=== PATIENT | male | born 1940 | race African-American/Black ===

== ENCOUNTER 2020-08-11 08:13 | Observation (INO) | payer BC, MEDICARE ==
[2020-08-11] MEDS ORDERED: Aspirin Chewable 81 MG TAB ONE (08:48)
[2020-08-11 10:04] LABS: #Eosinphils 0.1 thou/uL (0.0-0.7); #Lymphocytes 0.6 thou/uL (1.20-3.40); #Monocytes 0.3 thou/uL (0.11-0.59); #Neutrophils 11.2 thou/uL (1.40-6.50); %Eosinophils 0.5 % (0.0-10.0); %Lymphocytes 4.9 % (21.0-51.0); %Monocytes 2.1 % (0.0-10.0); %Neutrophils 92.5 % (42.0-75.0); Hemoglobin 12.6 g/dL (14.0-18.0); Mean Corpuscular HGB CONC 32.3 g/dL (32.0-36.0); Mean Corpuscular Hemoglobin 30.5 pg (27.0-31.0); Mean Corpuscular Volume 94.3 fL (78.0-98.0); Mean Platelet Volume 7.1 fL (7.4-10.4); Platelet Count 210 thou/uL (130-400); RBC Distribution Width 12.6 % (11.5-14.5); Red Blood Cell (RBC) Count 4.13 mill/uL (4.70-6.10); White Blood Cell (WBC) Count 12.1 thou/uL (4.8-10.8)
[2020-08-11 10:16] LABS: ALT (SGPT) 17 U/L (8-55); AST (SGOT) 47 U/L (5-34); Albumin 3.7 g/dL (3.4-4.8); Alkaline Phosphatase 99 U/L (40-110); Anion Gap 15 mmol/L (10-20); BUN (Urea Nitrogen) 23 mg/dL (8.4-25.7); Calc. Creatinine Clearance 0 mL/min (70-130); Calcium 8.7 mg/dL (7.8-10.44); Carbon Dioxide 21 mmol/L (23-31); Chloride 108 mmol/L (98-107); Globulin 3.6 g/dL (2.4-3.5); Glucose 115 mg/dL (83-110); Lipase 12 U/L (8-78); Potassium 5.4 mmol/L (3.5-5.1); Protein, Total 7.3 g/dL (5.8-8.1); Sodium 139 mmol/L (136-145)
[2020-08-11] MEDS ORDERED: Acetaminophen 325 MG TAB PO PRN (11:07)
[2020-08-11] MEDS ORDERED: Furosemide 20 MG TAB PO SCH ×2 (11:30→12:00)
[2020-08-11 11:40] LABS: Hemoglobin A1c 5.6 % (4.0-6.0)
[2020-08-11 11:54] LABS: Magnesium 1.9 mg/dL (1.6-2.6); Phosphorus 3.3 mg/dL (2.3-4.7)
[2020-08-11] MEDS ORDERED: Furosemide 40 MG TAB ONE (15:44)
[2020-08-11] MEDS ORDERED: Furosemide 20 MG/2 ML VIAL ONE (15:44)
[2020-08-11 18:34] LABS: Troponin I 0.034 ng/mL (< 0.028)
[2020-08-11] MEDS ORDERED: Ondansetron ODT 4 MG TAB PO PRN (19:59)
[2020-08-11 20:02] LABS: SARS-CoV-2 PCR by NAA Not Detected (NotDetected)
[2020-08-11 20:11] VITALS: BMI 31.7
[2020-08-11] MEDS ORDERED: Polyethylene Glycol 3350 17 GM Packet PO SCH (20:30)
[2020-08-11] MEDS: Carvedilol 25 MG TAB PO SCH (20:38)
[2020-08-11] MEDS: Sacubitril 49 MG/Valsartan 51 MG TABLET PO SCH (20:38)
[2020-08-12 05:59] LABS: #Eosinphils 0.1 thou/uL (0.0-0.7); #Lymphocytes 0.9 thou/uL (1.20-3.40); #Monocytes 0.5 thou/uL (0.11-0.59); #Neutrophils 4.9 thou/uL (1.40-6.50); %Basophils 0.2 % (0.0-1.0); %Eosinophils 1.9 % (0.0-10.0); %Lymphocytes 13.7 % (21.0-51.0); %Neutrophils 76.2 % (42.0-75.0); Hemoglobin 12.2 g/dL (14.0-18.0); Mean Corpuscular HGB CONC 31.7 g/dL (32.0-36.0); Mean Corpuscular Hemoglobin 30.5 pg (27.0-31.0); Mean Corpuscular Volume 96.2 fL (78.0-98.0); Mean Platelet Volume 7.3 fL (7.4-10.4); Platelet Count 203 thou/uL (130-400); RBC Distribution Width 12.6 % (11.5-14.5); Red Blood Cell (RBC) Count 4.01 mill/uL (4.70-6.10); White Blood Cell (WBC) Count 6.4 thou/uL (4.8-10.8)
[2020-08-12 06:20] LABS: Anion Gap 14 mmol/L (10-20); BUN (Urea Nitrogen) 19 mg/dL (8.4-25.7); Calc. Creatinine Clearance 105 mL/min (70-130); Calcium 8.1 mg/dL (7.8-10.44); Carbon Dioxide 19 mmol/L (23-31); Cardiac Risk 2.6 (Less than 4.5); Chloride 109 mmol/L (98-107); Cholesterol 126 mg/dl (< 200 Desired); Glucose 80 mg/dL (83-110); HDL Cholesterol 49 mg/dL (>60 Neg Risk); LDL Cholesterol, Calculated 69 mg/dL; Potassium 4.1 mmol/L (3.5-5.1); Sodium 138 mmol/L (136-145); Triglycerides 38 mg/dL (Less than 150)
[2020-08-12] MEDS: Sacubitril 49 MG/Valsartan 51 MG TABLET PO SCH (08:39)
[2020-08-12] MEDS: Carvedilol 25 MG TAB PO SCH (08:40)
[2020-08-12] MEDS ORDERED: Polyethylene Glycol 3350 17 GM Packet PO SCH (09:00)
[2020-08-12] MEDS ORDERED: Enoxaparin Sodium 40 MG/0.4 ML SYRINGE SC SCH (09:00)
[2020-08-12] MEDS ORDERED: Aspirin Chewable 81 MG TAB PO SCH (09:00)
[2020-08-12] MEDS ORDERED: Amiodarone 200 MG TAB PO SCH (09:00)
[2020-08-12 09:05] VITALS: BP 110/55; TEMP 98.3
[2020-08-12] MEDS ORDERED: Atorvastatin Calcium 20 MG TAB PO SCH (21:00)
== END 2020-08-12 11:41 | disposition home or self-care (01) ==
LOC: ERS 08:13 → ERHOLD 10:46 → 2SW 19:46
PROVIDERS: ADMIT Family Medicine; ATTEND Family Medicine
DX: K59.09 Other constipation (principal); I25.10 Atherosclerotic heart disease of native coronary artery without angina pectoris; I11.0 Hypertensive heart disease with heart failure; I50.9 Heart failure, unspecified; E87.5 Hyperkalemia; E78.5 Hyperlipidemia, unspecified; G47.33 Obstructive sleep apnea (adult) (pediatric); I49.9 Cardiac arrhythmia, unspecified; I08.3 Combined rheumatic disorders of mitral, aortic and tricuspid valves; E66.9 Obesity, unspecified; Z68.31 Body mass index [BMI] 31.0-31.9, adult; Z87.891 Personal history of nicotine dependence; Z79.82 Long term (current) use of aspirin; Z79.899 Other long term (current) drug therapy; Z95.0 Presence of cardiac pacemaker; Z95.1 Presence of aortocoronary bypass graft; Z20.822 Contact with and (suspected) exposure to COVID-19
CPT/HCPCS: 71045; 80048; 80061; 83036; 83690; 83735; 84100; 84436; 84484 ×2; 85025; 93005; 93306; 96372; 99285; G0378 ×3; U0003; U0005; 36415; 80053; 84443; 87635; J1650; J1940

== ENCOUNTER 2020-08-17 17:48 | Observation (INO) | payer MEDICARE ==
[~2020-08-17 17:48] MED LIST: Iopamidol-370 76% 500 ML 1 ML ONE
[2020-08-17 18:35] LABS: #Lymphocytes 1.1 thou/uL (1.20-3.40); #Monocytes 0.4 thou/uL (0.11-0.59); #Neutrophils 8.8 thou/uL (1.40-6.50); %Basophils 0.2 % (0.0-1.0); %Eosinophils 0.3 % (0.0-10.0); %Monocytes 3.9 % (0.0-10.0); %Neutrophils 84.6 % (42.0-75.0); Hemoglobin 13.5 g/dL (14.0-18.0); Mean Corpuscular HGB CONC 32.8 g/dL (32.0-36.0); Mean Corpuscular Hemoglobin 30.7 pg (27.0-31.0); Mean Corpuscular Volume 93.6 fL (78.0-98.0); Mean Platelet Volume 6.9 fL (7.4-10.4); Platelet Count 231 thou/uL (130-400); RBC Distribution Width 12.4 % (11.5-14.5); Red Blood Cell (RBC) Count 4.39 mill/uL (4.70-6.10); White Blood Cell (WBC) Count 10.4 thou/uL (4.8-10.8)
[2020-08-17 19:01] LABS: ALT (SGPT) 12 U/L (8-55); AST (SGOT) 17 U/L (5-34); Albumin 3.6 g/dL (3.4-4.8); Alkaline Phosphatase 82 U/L (40-110); Anion Gap 16 mmol/L (10-20); BUN (Urea Nitrogen) 28 mg/dL (8.4-25.7); Calc. Creatinine Clearance 0 mL/min (70-130); Calcium 8.8 mg/dL (7.8-10.44); Carbon Dioxide 20 mmol/L (23-31); Chloride 107 mmol/L (98-107); Globulin 3.2 g/dL (2.4-3.5); Glucose 126 mg/dL (83-110); Lipase 7 U/L (8-78); Potassium 4.6 mmol/L (3.5-5.1); Protein, Total 6.8 g/dL (5.8-8.1); Sodium 138 mmol/L (136-145)
[2020-08-17 20:14] LABS: Bilirubin Negative (Negative); Blood, Urine Negative (Negative); Clarity Clear (Clear); Glucose, Urine (Dipstick) Normal (Negative); Ketone, Urine Negative (Negative); Leukocyte Negative Leu/uL (Negative); Nitrite Negative (Negative); Protein, Urine (Dipstick) Negative (Neg-Trace); Specific Gravity, Urine 1.029 (1.002-1.036); pH, Urine 6.5 (5.0-9.0)
[2020-08-17] MEDS ORDERED: Morphine 2 MG/ML VIAL SLOW IVP PRN (23:12)
[2020-08-17] MEDS ORDERED: Ondansetron ODT 4 MG TAB SL PRN (23:15)
[2020-08-17] MEDS ORDERED: Ondansetron PF 4 MG/2 ML Vial IVP PRN (23:15)
[2020-08-17] MEDS ORDERED: Sodium Chloride 0.9% 1,000 ML IV SCH (23:15)
[2020-08-17 23:24] VITALS: BMI 30.9
[2020-08-18 02:55] LABS: SARS-CoV-2 NAA Rapid Test Not Detected (NotDetected)
[2020-08-18] MEDS ORDERED: Morphine 2 MG/ML VIAL SLOW IVP PRN (10:26)
[2020-08-18] MEDS ORDERED: Morphine 4 MG/ML VIAL SLOW IVP PRN (10:26)
[2020-08-18] MEDS ORDERED: Ondansetron ODT 4 MG TAB PO PRN (10:26)
[2020-08-18] MEDS ORDERED: Ondansetron PF 4 MG/2 ML Vial IVP PRN (10:26)
[2020-08-18] MEDS ORDERED: hydrALAZINE 20 MG/ML VIAL SLOW IVP PRN (10:26)
[2020-08-18] MEDS ORDERED: Sodium Chloride 0.9% 1,000 ML IV SCH (10:30)
[2020-08-18] MEDS ORDERED: Amiodarone 200 MG TAB PO SCH (10:45)
[2020-08-18] MEDS ORDERED: Carvedilol 25 MG TAB PO SCH ×2 (10:45→21:00)
[2020-08-18] MEDS ORDERED: Lidocaine 1% w/Epinephrine 1:100K 20 ML VIAL ONE (11:57)
[2020-08-18] MEDS ORDERED: Bupivacaine 0.25% HCL 30 ML VIAL ONE (11:57)
[2020-08-18] MEDS ORDERED: Fentanyl 100 MCG/2 ML VIAL ONE (12:20)
[2020-08-18] MEDS ORDERED: Rocuronium Bromide 10 MG/ML (10ML VIAL) ONE (12:23)
[2020-08-18] MEDS ORDERED: PHENYLEPHRINE-NS 100 MCG/ML 10 ML SYRINGE ONE (12:23)
[2020-08-18] MEDS ORDERED: Dexamethasone 20 MG/5 ML VIAL ONE (12:23)
[2020-08-18] MEDS ORDERED: ePHEDrine Sulfate 50 MG/10 ML VIAL ONE (12:23)
[2020-08-18] MEDS ORDERED: Glycopyrrolate 0.2 MG/ML 5 ML SYRINGE ONE (12:23)
[2020-08-18] MEDS ORDERED: Succinylcholine 200 MG/10 ml SYRINGE FS ONE (12:23)
[2020-08-18] MEDS ORDERED: Lidocaine 1% PF 5 ML VIAL ONE (12:23)
[2020-08-18] MEDS ORDERED: PROPOFOL 200 MG/20 ML VIAL ONE (12:23)
[2020-08-18] MEDS ORDERED: Ondansetron PF 4 MG/2 ML Vial ONE (12:23)
[2020-08-18] MEDS ORDERED: Promethazine HCl 25 MG/ML VIAL IM PRN (14:06)
[2020-08-18] MEDS ORDERED: Promethazine HCl 25 MG/ML VIAL SLOW IVP PRN (14:06)
[2020-08-18] MEDS ORDERED: Morphine Sulfate 2 MG/ML SYRINGE SLOW IVP PRN (14:06)
[2020-08-18] MEDS ORDERED: Ondansetron HCl/PF 4 MG/2 ML Vial IVP PRN (14:06)
[2020-08-18] MEDS ORDERED: Acetaminophen 500 MG TAB PO PRN (14:14)
[2020-08-18] MEDS ORDERED: Ibuprofen 600 MG TAB PO PRN (14:14)
[2020-08-18] MEDS ORDERED: traMADol HCl 50 MG TAB PO PRN (14:14)
[2020-08-18 16:12] VITALS: BP 127/76; TEMP 98
[2020-08-18] MEDS ORDERED: Enoxaparin Sodium 40 MG/0.4 ML SYRINGE SC SCH (21:00)
[2020-08-18] MEDS ORDERED: Famotidine 20 MG TAB PO SCH (21:00)
[2020-08-19] MEDS ORDERED: Aspirin Chewable 81 MG TAB PO SCH (09:00)
[2020-08-19] MEDS ORDERED: Amiodarone 200 MG TAB PO SCH (09:00)
== END 2020-08-18 17:45 | disposition home or self-care (01) ==
LOC: ERS 17:48 → SJJU 22:10
PROVIDERS: ADMIT Specialist; ATTEND Specialist
PROC: 0FT44ZZ Resection of Gallbladder, Percutaneous Endoscopic Approach (ICD-10-PCS; principal; 2020-08-18)
DX: K80.12 Calculus of gallbladder with acute and chronic cholecystitis without obstruction (principal); I25.10 Atherosclerotic heart disease of native coronary artery without angina pectoris; I11.0 Hypertensive heart disease with heart failure; I50.9 Heart failure, unspecified; N17.9 Acute kidney failure, unspecified; E78.5 Hyperlipidemia, unspecified; E78.00 Pure hypercholesterolemia, unspecified; Z79.82 Long term (current) use of aspirin; Z79.899 Other long term (current) drug therapy; Z95.0 Presence of cardiac pacemaker; Z95.1 Presence of aortocoronary bypass graft; Z20.822 Contact with and (suspected) exposure to COVID-19
CPT/HCPCS: 47562; 71045; 74177; 76705; 80053; 81003; 83690; 84484; 85025; 88304; 93005; 96365; 96372; 96375; 96376; 99285; G0378 ×3; J2270; U0002; U0005; 36415; J0500; J1100; J1956; J2405; J2704; J3010; Q9967; S0020